=== PATIENT | male | born 1970 | race Caucasian/White ===

== ENCOUNTER 2018-06-09 06:38 | Inpatient (IN) | payer OTHER ==
[2018-06-01 13:59] VITALS: BMI 32.4
[2018-06-09] MEDS ORDERED: TRANEXAMIC ACID 1000 MG/10 ML VIAL IVPUSH ONE (07:52)
[2018-06-09] MEDS ORDERED: CELECOXIB 200 MG CAPSULE PO ONE (07:52)
[2018-06-09] MEDS ORDERED: CEFAZOLIN 2 GM in DEXTROSE 5%-WATER - 50 ML IVPB ONE (07:52)
[2018-06-09] MEDS ORDERED: GABAPENTIN 300 MG CAPSULE (FP) PO ONE (07:52)
[2018-06-09] MEDS ORDERED: oxyCODONE HCL 10 MG SUSTAINED ACTING TABLET PO ONE (07:52)
--- NOTE | 2018-06-09 07:57 | HP ---
Satellite [facility] - Chief Complaint Chief Complaint: right knee pain - Past Medical History Allergies/Adverse Reactions: Allergies Allergy/AdvReac Type Severity Reaction Status Date / Time No Known Allergies Allergy Verified 06/01/18 13:47 - Current Medications Current Medications: Home Medications Medication Instructions Recorded Losartan/Hydrochlorothiazide 1 each PO DAILY 06/01/18 [Losartan-Hctz 50-12.5 mg Tab] Satellite Physical Exam - Physical Examination General Appearance: Well Nourished, Well Developed, Alert & Oriented x3 ENT: Clear Lung: Normal air movement Heart: Regular rate & rhythm Extremities: Other (right knee- + swelling, + ttp, decr rom, nvi xrays show grade 4 tricompartmental djd) Neurological: Intact, Alert, Oriented Satellite Impression/Plan - Impression/Plan Impression: right knee djd Operative Procedure: right martha tkr Date to be Performed: 06/09/18
[2018-06-09] MEDS ORDERED: ceFAZolin SODIUM 1 GM VIAL ONE ×2 (08:03→10:07)
[2018-06-09] MEDS ORDERED: VANCOMYCIN 1,000 MG VIAL (RESTRICTED TO ID ONLY) ONE ×2 (08:03→09:56)
[2018-06-09] MEDS ORDERED: MIDAZOLAM HCL 2 MG/2 ML SINGLE DOSE VIAL ONE (08:57)
[2018-06-09] MEDS ORDERED: BUPIVACAINE HCL/PF (5 MG/ML) 30 ML VIAL IJ ONE (08:57)
[2018-06-09] MEDS ORDERED: BUPIVACAINE LIPOSOME/PF (EXPAREL) 266 MG/20 ML VIAL ONE (08:57)
[2018-06-09] MEDS ORDERED: SODIUM CHLORIDE 0.9% P/F 10 ML VIAL IJ ONE (08:57)
[2018-06-09] MEDS ORDERED: MAGNESIUM HYDROX 2400MG/30ML ORAL SUSPENSION 30 ML CUP PO PRN (09:56)
[2018-06-09] MEDS ORDERED: MAG HYDROX/AL HYDROX/SIMETH 30 ML UNIT-DOSE CUP PO PRN (09:56)
[2018-06-09] MEDS ORDERED: LACTATED RINGERS SOLUTION 1,000 ML IV SCH ×2 (10:00→12:30)
[2018-06-09] MEDS ORDERED: TRANEXAMIC ACID 1000 MG/10 ML VIAL ONE ×2 (10:07→11:54)
[2018-06-09] MEDS ORDERED: ONDANSETRON 4 MG/2 ML VIAL ONE (10:08)
[2018-06-09] MEDS ORDERED: PROPOFOL 20 ML ONE ×2 (10:10→11:20)
--- NOTE | 2018-06-09 12:08 | OP ---
Operative Note - Note: Operative Date: 06/09/18 (jessa) Pre-Operative Diagnosis: right knee djd Operation: right martha tkr Post-Operative Diagnosis: Same as Pre-op Surgeon: Rk Osei Bell Maker: Fabian Mendenhall Anesthesiologist/ORACLE BRM DEVELOPER: Earl Cho Anesthesia: Spinal, Local Specimens Removed: bone fragments Estimated Blood Loss (mls): 150 Operative Report Dictated: Yes
[2018-06-09] MEDS ORDERED: PROMETHAZINE HCL 25 MG/1 ML VIAL IVPB PRN (12:22)
[2018-06-09] MEDS ORDERED: ONDANSETRON 4 MG/2 ML VIAL IVPUSH PRN (12:22)
[2018-06-09] MEDS: ACETAMINOPHEN 1000 MG/100 ML VIAL (NON FORMULARY) IVPB ONE ×2 (12:55→13:19)
[2018-06-09] MEDS: ONDANSETRON 4 MG/2 ML VIAL IVPUSH PRN (13:10)
[2018-06-09] MEDS: SENNOSIDES/DOCUSATE COMBO (SENNA PLUS) TABLET (UD) PO SCH ×2 (13:18→21:22)
[2018-06-09] MEDS: LOSARTAN 50MG/HCTZ 12.5MG 1 TAB (FP) PO SCH (13:18)
[2018-06-09] MEDS: PANTOPRAZOLE 40 MG TABLET (FP) PO SCH (13:19)
[2018-06-09] MEDS: MULTIVITAMINS (DAILY MVI) TABLET (FP) PO SCH (13:19)
[2018-06-09] MEDS ORDERED: oxyCODONE HCL 5 MG TABLET PO PRN (13:49)
[2018-06-09] MEDS: ACETAMINOPHEN 325 MG TABLET (FP) PO SCH ×2 (16:39→20:34)
[2018-06-09] MEDS: CEFAZOLIN 2 GM/D5W 2 GM/50 ML ML IVPB SCH (18:44)
--- NOTE | 2018-06-09 20:53 | SPEC ---
DATE OF OPERATION: 06/09/2018 PREOPERATIVE DIAGNOSIS: Degenerative joint disease, right knee. POSTOPERATIVE DIAGNOSIS: Degenerative joint disease, right knee. PROCEDURE: Right total knee replacement with robotic-assisted navigation (Makoplasty). SURGICAL ATTENDING: Rk Osei M.D. CORN GROWER: Everardo Woods ANESTHESIA: Regional and spinal. CLOSURE: A cemented Triathlon knee system with a 6 femur, 7 tibia, 11 polyethylene, 38 patella, number 1 Vicryl fascia, 0 and 2-0 subcutaneous, 3-0 Monocryl subcuticular, with skin glue for skin, 4-0 undyed Vicryl for pin sites. ESTIMATED BLOOD LOSS: Less than 100 mL. COMPLICATIONS: None. CONDITION: To recovery room in stable condition. DESCRIPTION OF OPERATIVE PROCEDURE: Patient was taken to the operating room on June 09, 2018. Regional and general anesthesia was administered by the anesthesiologist. IV Kefzol and TXA were administered by the anesthesiologist. Well-padded pneumatic tourniquet was placed on the proximal thigh. The right lower extremity was prepped and draped in the usual sterile fashion. The leg was exsanguinated with an Esmarch bandage, and tourniquet was inflated to 275 mmHg. A 12 to 15-cm longitudinal midline incision was incised while centered over the patella. The dissection was carried down to the level of the extensor mechanism with sufficient flaps made to adequately perform the procedure. A medial parapatellar arthrotomy was then performed. We made a cuff of tissue on the patella for later closure. The patella was inverted, the knee was flexed up. The fat pad was excised. The subperiosteal dissection was on the anteromedial proximal tibia around towards the direction of the MCL. The ACL and the PCL were transected and debrided. The meniscal remnants of the medial and lateral meniscus were debrided and removed. This allowed the knee to be able to "be brought forward." The checkpoints were malleted into the tibia and into the femur. Two threaded pins were drilled anteroposteriorly proximal to the knee through the previous incision, through the anterior cortex, then just engaging the posterior cortex. To these pins was assembled the femoral navigation array. One handbreadth below the tibial tubercle, 2 stab incisions were used to drill 2 threaded pins in parallel fashion into the tibia, again through the anterior cortex and just engaging the posterior cortex. To these pins was fastened the tibial arrays. The knee was then registered with the navigation device with center of rotation of the hip, medial and lateral malleoli, both checkpoints, and multiple points on both the femur and the tibia to ensure excellent registration. The navigation device was directed off the "top of the bubbles" on both the femur and the tibia. The navigation passed within less than 0.5 mm to plan. The knee was then thoroughly inspected to remove all osteophytes both medially, laterally, and on the femur and the tibia, and whatever osteophytes were available for dissection. The knee was then taken to extension and to flexion, and stressed in both varus and valgus to assess flexion gaps. The virtual position of the components on the navigation device were then manipulated to optimize the position and to ensure equal gaps in both flexion and extension, and both medially and laterally. The robot was then brought into the field and was registered. The cuts were then made both on the femur and on the tibia as to plan. All osteophytes posteriorly were then removed as well. The gaps were then measured again in flexion and extension to be equal in both flexion and extension and medial and laterally. The femoral notch was then made, as we were doing a posterior stabilizing component, with the appropriate sized box. Trial reduction of the femur achieved excellent [id number] fit. A tibial baseplate of appropriate polyethylene thickness was "floated in the knee." It was ensured to be in the excellent position by navigation devices and was pinned in place. The knee was taken through a range of motion, and found to have excellent stability throughout flexion and extension. The patella was calibrated for thickness and osteotomized down to the appropriate level. The appropriate lollipop was used to drill the lug holes in the patella and the trial button was applied. The knee was taken through a range of motion and found to have excellent tracking of the patella, and patella from full extension to full flexion. Trial components were removed, the keel was punched and drilled, and a sclerotic bone on the tibia was drilled to help with cement interdigitation. The knee was thoroughly irrigated with the pulse antibiotic automobile seat cover installer. The real components were then cemented in using monitored arrangement cement techniques with antibiotic cement, and pressurization and extension. After the cement was hardened, the knee was thoroughly inspected to remove any extra cement. The real polyethylene component was then clipped into place. Range of motion, stability, and tracking were as described earlier. The checkpoints and the pins were removed. The knee was thoroughly irrigated with antibiotic irrigation. Vancomycin powder was placed into the knee for antibiotic prophylaxis. The medial parapatellar arthrotomy was then closed using number 1 Vicryl interrupted suture. After closure of the deep layer, the knee was taken through a range of motion, and found to have excellent stability of the patella with no dislocation and no undue tension on the repair. The subcutaneous was pulse antibiotic irrigated, and was then closed with 2-0 Vicryl, 3-0 Monocryl subcuticular with the skin glue for the skin. The distal tibial pin site was irrigated thoroughly as well and then closed with 4-0 undyed Vicryl. A sterile Aquacel dressing was applied, followed by a Chi dressing. Tourniquet was deflated. Total tourniquet time was approximately 75 minutes. No complications. Patient was awakened from anesthesia and transferred to recovery room in stable condition. Postoperative x-rays revealed excellent position of the components. Isabela [id number]
[2018-06-09] MEDS: GABAPENTIN 300 MG CAPSULE (FP) PO SCH (21:21)
[2018-06-09] MEDS: oxyCODONE HCL 5 MG TABLET PO PRN (21:22)
[2018-06-09] MEDS: oxyCODONE HCL 10 MG SUSTAINED ACTING TABLET PO SCH (21:22)
[2018-06-10] MEDS: CEFAZOLIN 2 GM/D5W 2 GM/50 ML ML IVPB SCH (01:50)
[2018-06-10] MEDS: ACETAMINOPHEN 325 MG TABLET (FP) PO SCH ×4 (02:33→21:54)
[2018-06-10] MEDS: oxyCODONE HCL 5 MG TABLET PO PRN ×4 (05:34→23:35)
[2018-06-10 07:50] LABS: HEMATOCRIT 42.9 % (35.4-49)
[2018-06-10 08:06] LABS: HEMOGLOBIN 14.3 GM/dl (11.7-16.9); MCH 28.8 pg (25.7-33.7); MCHC 33.2 g/dl (32.0-35.9); MEAN CELL VOLUME 86.7 fl (80-96); MEAN PLT VOLUME 7.8 fl (7.5-11.1); PLATELET COUNT 287 K/MM3 (134-434); RBC 4.95 M/mm3 (4.00-5.60); RDW 12.6 % (11.9-15.9); WHITE BLOOD COUNT 10.7 K/mm3 (4.0-10.8)
--- NOTE | 2018-06-10 08:22 | PN ---
Progress Note (short form) - Note Progress Note: Ortho Pt seen and examined s/p right martha tkr pod #1 Selected Entries 06/10/18 05:00 Temperature 98.1 F Pulse Rate 102 H Respiratory 18 Rate Blood Pressure 130/81 Laboratory Tests 06/10/18 07:15 WBC 10.7 Hgb 14.3 Hct 42.9 Plt Count 287 dressing c/d/i, calf soft, nt rom 0-50, nvi a/p PT dvt ppx pain control d/c home tomorrow if stable
[2018-06-10] MEDS: ASPIRIN 325 MG TABLET PO SCH (08:34)
[2018-06-10] MEDS: MULTIVITAMINS (DAILY MVI) TABLET (FP) PO SCH (09:14)
[2018-06-10] MEDS: PANTOPRAZOLE 40 MG TABLET (FP) PO SCH (09:14)
[2018-06-10] MEDS: GABAPENTIN 300 MG CAPSULE (FP) PO SCH ×2 (09:14→21:53)
[2018-06-10] MEDS: LOSARTAN 50MG/HCTZ 12.5MG 1 TAB (FP) PO SCH (09:14)
[2018-06-10] MEDS: SENNOSIDES/DOCUSATE COMBO (SENNA PLUS) TABLET (UD) PO SCH ×2 (09:15→21:54)
[2018-06-10] MEDS: oxyCODONE HCL 10 MG SUSTAINED ACTING TABLET PO SCH ×2 (09:15→21:54)
[2018-06-10] MEDS: ONDANSETRON 4 MG/2 ML VIAL IVPUSH PRN (09:19)
[2018-06-11] MEDS: ACETAMINOPHEN 325 MG TABLET (FP) PO SCH ×2 (04:00→08:51)
[2018-06-11] MEDS: oxyCODONE HCL 5 MG TABLET PO PRN ×2 (06:26→13:00)
--- NOTE | 2018-06-11 08:12 | PN ---
Progress Note (short form) - Note Progress Note: Ortho Pt seen and examined s/p right martha tkr pod #2 Selected Entries 06/11/18 06:00 Temperature 98.5 F Pulse Rate 111 H Respiratory 18 Rate Blood Pressure 145/82 Laboratory Tests 06/11/18 07:00 WBC Pending Hgb Pending Hct Pending Plt Count Pending dressing c/d/i, calf soft, nt rom 0-50, nvi a/p PT dvt ppx pain control d/c home today f/u in 1 week
--- NOTE | 2018-06-11 08:13 | DS ---
Physical Examination Vital Signs: Vital Signs Temperature 98.5 F 06/11/18 06:00 Pulse Rate 111 H 06/11/18 06:00 Respiratory Rate 18 06/11/18 06:00 Blood Pressure 145/82 06/11/18 06:00 O2 Sat by Pulse Oximetry (%) 94 L 06/11/18 06:00 Discharge Summary Reason For Visit: OSTEOARTHRITIS Procedures: Principal: right tkr Hospital Course: admitted for elective right martha tkr, uneventful post-op, stable for d/c Condition: Good - Instructions Diet, Activity, Other Instructions: Post-op Instructions-Total Knee Replacement Call the office for a follow-up appointment in 1 week - [phone] Aspirin 325mg daily for 6 weeks. Pain medication was sent into your pharmacy. Apply Graduated Compression Stockings (TEDs) to both lower extremities- remove daily for hygiene ONLY Apply Sequential Compression Device (SCDs) to both Lower extremities remove for PT and hygiene ONLY Apply cold packs to affected area for 15 minutes every 2 hours. Physical Therapist will come to your home for the first 5 days. You will be set up with outpatient PT at your first post-operative visit. Patient may ambulate as tolerated-encourage self care (at least every 2-3 hours while awake) with walker or cane Maintain Aquacel (waterproof) dressing to operative wound (will be removed by surgeon at first office visit) Shower with Aquacel dressing in place-if Aquacel integrity compromised, remove and apply dry sterile dressing and notify Orthopedist. DO NOT SHOWER unless Orthopedists approves without Aquacel dressing CONTACT THE OFFICE FOR ANY CHANGE IN YOUR CONDITION (for example-fever greater than 102 degrees, excessive bleeding from operative site, purulent drainage, severe swelling or pain) GO TO THE EMERGENCY ROOM IF THERE IS A MEDICAL EMERGENCY Knee Precautions: * Keep a rolled towel under affected heel while in bed or chair (to keep knee in extension) * Keep affected leg elevated except during mealtimes * DO NOT PLACE PILLOW UNDER AFFECTED KNEE * If you have any questions, please do not hesitate to call the office - [phone]. Referrals: Rk Osei MD [Staff Physician] - Disposition: VNS/HOME HEALTH CARE - Home Medications Comprehensive Discharge Medication List: Ambulatory Orders Losartan/Hydrochlorothiazide [Losartan-Hctz 50-12.5 mg Tab] 1 each PO DAILY 03/09 Aspirin [ASA -] 325 mg PO DAILY@0800 tablet 06/09/18 Oxycodone HCl/Acetaminophen [Percocet 5-325 mg Tablet -] 1 - 2 tab PO Q6H #60 tab MDD 8 06/10/18
[2018-06-11 08:37] LABS: HEMATOCRIT 41.1 % (35.4-49); HEMOGLOBIN 13.7 GM/dl (11.7-16.9); MCH 29.2 pg (25.7-33.7); MCHC 33.5 g/dl (32.0-35.9); MEAN CELL VOLUME 87.3 fl (80-96); MEAN PLT VOLUME 8.1 fl (7.5-11.1); PLATELET COUNT 246 K/MM3 (134-434); RBC 4.71 M/mm3 (4.00-5.60); RDW 12.8 % (11.9-15.9); WHITE BLOOD COUNT 10.9 K/mm3 (4.0-10.8)
[2018-06-11] MEDS: ASPIRIN 325 MG TABLET PO SCH (08:51)
[2018-06-11 09:14] VITALS: BP 112/61; PULSE 113; TEMP 99.1
[2018-06-11] MEDS: oxyCODONE HCL 10 MG SUSTAINED ACTING TABLET PO SCH (09:42)
[2018-06-11] MEDS: MULTIVITAMINS (DAILY MVI) TABLET (FP) PO SCH (09:42)
[2018-06-11] MEDS: LOSARTAN 50MG/HCTZ 12.5MG 1 TAB (FP) PO SCH (09:42)
[2018-06-11] MEDS: SENNOSIDES/DOCUSATE COMBO (SENNA PLUS) TABLET (UD) PO SCH (09:42)
[2018-06-11] MEDS: GABAPENTIN 300 MG CAPSULE (FP) PO SCH (09:42)
[2018-06-11] MEDS: PANTOPRAZOLE 40 MG TABLET (FP) PO SCH (09:42)
--- NOTE | 2018-06-17 14:09 | PATH ---
Surgical Pathology Report Patient Name: ANAHI KASPER Med. Rec. #: [id number] /Age/Gender: 1970 (Age: 48) / M Account: [id number] Location: [facility] MED-SURG Taken: 06/09/2018 Received: 06/09/2018 Reported: 06/17/2018 Physicians: Rk Osei M.D. Specimen(s) Received RIGHT KNEE BONE Clinical History Osteoarthritis Final Diagnosis BONE, RIGHT KNEE, TOTAL KNEE REPLACEMENT: DEGENERATIVE JOINT DISEASE. Electronically Signed Theodora Rutledge M.D. Gross Description Received in formalin labeled "right knee bone," is an 11.5 x 10.0 x 2.0 cm aggregate of multiple portions of bone and soft tissue, consistent with knee bones. The articular surfaces are cooper-brown and diffusely granular. No areas of eburnation are identified. The underlying trabecular bone is yellow and hard. Director Of Reservations sections are submitted in one cassette, following decalcification. 06/10/2018 [facility]06/10/2018
== END 2018-06-11 13:10 | disposition home health service (06) | DRG 470 ==
LOC: FM/S 06:38
PROVIDERS: ADMIT Orthopaedic Surgery; ATTEND Orthopaedic Surgery
PROC: 8E0Y0CZ Robotic Assisted Procedure of Lower Extremity, Open Approach (ICD-10-PCS; 2018-06-09)
PROC: 0SRC0JZ Replacement of Right Knee Joint with Synthetic Substitute, Open Approach (ICD-10-PCS; principal; 2018-06-09 10:08)
DX: M17.11 Unilateral primary osteoarthritis, right knee (principal)
CPT/HCPCS: 36415; 73560-TC-RT-FY; 85027; 88304-TC; 88311-TC; 94760; 97116-GP; 97162-GP; J0131

== ENCOUNTER 2018-07-17 08:44 | Day surgery (SDC) | payer OTHER ==
[2018-07-16 09:10] VITALS: BMI 32.1
--- NOTE | 2018-07-17 08:11 | HP ---
Satellite [facility] - Chief Complaint Chief Complaint: STIFFNESS R KNEE History Source: Patient - Past Medical History Allergies/Adverse Reactions: Allergies Allergy/AdvReac Type Severity Reaction Status Date / Time No Known Allergies Allergy Verified 06/01/18 13:47 - Current Medications Current Medications: Home Medications Medication Instructions Recorded Losartan/Hydrochlorothiazide 1 each PO DAILY 06/01/18 [Losartan-Hctz 50-12.5 mg Tab] Aspirin [ASA -] 325 mg PO DAILY@0800 tablet 06/09/18 Acetaminophen [Extra Strength 500 mg PO PRN PRN 07/16/18 Non-Aspirin] Satellite Physical Exam - Physical Examination Extremities: Other (DECREASED ROM R KNEE) Satellite Impression/Plan - Impression/Plan Impression: ARTHROFRIBROSIS R KNEE S/P R TKR Operative Procedure: KENIA R KNEE Date to be Performed: 07/17/18
[2018-07-17] MEDS ORDERED: DEXAMETHASONE SOD PHOSPHATE 4 MG/1 ML VIAL ONE (09:32)
[2018-07-17] MEDS ORDERED: LIDOCAINE HCL/PF 2% SDV 5ML VIAL ONE (09:32)
[2018-07-17] MEDS ORDERED: KETOROLAC TROMETHAMINE 30 MG/1 ML VIAL ONE (09:32)
[2018-07-17] MEDS ORDERED: MIDAZOLAM HCL 2 MG/2 ML SINGLE DOSE VIAL ONE (09:35)
--- NOTE | 2018-07-17 10:11 | OP ---
Operative Note - Note: Operative Date: 07/17/18 ([facility]) Pre-Operative Diagnosis: right knee arthrofibrosis s/p TKR Operation: right knee manipulation under anesthesia Post-Operative Diagnosis: Same as Pre-op Surgeon: Rk Osei Anesthesiologist/GLOBAL CHIEF EXPERIENCE OFFICER: Matt Gil Anesthesia: MAC Operative Report Dictated: Yes
[2018-07-17] MEDS ORDERED: PROPOFOL 20 ML ONE (10:14)
--- NOTE | 2018-07-17 10:37 | OP ---
DATE OF OPERATION: 07/17/2018 PREOPERATIVE DIAGNOSIS: Arthrofibrosis status post right total knee replacement. POSTOPERATIVE DIAGNOSIS: Arthrofibrosis status post right total knee replacement. PROCEDURE: Manipulation under anesthesia of right knee. SURGICAL ATTENDING: Rk Osei MD ANESTHESIA: IV sedation. COMPLICATIONS: None. CONDITION: To recovery room in stable condition. DESCRIPTION OF OPERATIVE PROCEDURE: Patient was taken to the operating room on July 17, 2018. IV sedation was administered by the anesthesiologist. Prior to the manipulation, patient had an arc of range of motion from 5 degrees to 85 degrees. After sedation was given, a gentle manipulation was performed. Flexion was easily obtained to 125 degrees of flexion, and then, patellar mobilization medially and laterally was performed, as well, and then, extension also was able to be fully regained. Patient was awakened from anesthesia 1 minute after being anesthetized and transferred to the recovery room in stable condition. No complications. RK OSEI M.D. [id number]
[2018-07-17] MEDS ORDERED: ONDANSETRON 4 MG/2 ML VIAL IVPUSH PRN (11:13)
[2018-07-17] MEDS ORDERED: oxyCODONE HCL 5 MG TABLET PO PRN (11:13)
[2018-07-17 11:15] VITALS: BP 138/91; PULSE 86; TEMP 97.6
[2018-07-17] MEDS ORDERED: LACTATED RINGERS SOLUTION 1,000 ML IV SCH (11:15)
== END 2018-07-17 11:31 | disposition home or self-care (01) ==
LOC: JASU-SURG 08:44
PROVIDERS: ATTEND Orthopaedic Surgery
PROC: 0SNCXZZ Release Right Knee Joint, External Approach (ICD-10-PCS; principal; 2018-07-17 11:30)
DX: M24.661 Ankylosis, right knee (principal); Z96.651 Presence of right artificial knee joint

== ENCOUNTER 2022-06-18 05:53 | Day surgery (SDC) | payer OTHER ==
[2022-06-18] MEDS ORDERED: CELECOXIB 200 MG CAPSULE PO ONE (06:31)
[2022-06-18] MEDS ORDERED: CEFAZOLIN 2 GM in DEXTROSE 5%-WATER - 50 ML IVPB ONE (06:31)
[2022-06-18 06:59] VITALS: BMI 32.7
[2022-06-18] MEDS ORDERED: PROPOFOL 60 ML ONE (07:18)
[2022-06-18] MEDS ORDERED: MIDAZOLAM HCL 2 MG/2 ML SINGLE DOSE VIAL ONE (07:18)
[2022-06-18] MEDS ORDERED: ceFAZolin SODIUM 1 GM VIAL ONE ×4 (07:19→08:06)
[2022-06-18] MEDS ORDERED: VANCOMYCIN 1,000 MG VIAL (RESTRICTED TO ID ONLY) ONE (07:19)
[2022-06-18] MEDS ORDERED: BUPIVACAINE HCL/PF 0.5% (5 MG/ML) 30 ML VIAL IJ ONE (07:23)
[2022-06-18] MEDS ORDERED: DEXAMETHASONE SOD PHOSPHATE/PF 10 MG/ML SDV ONE (07:23)
[2022-06-18] MEDS ORDERED: ACETAMINOPHEN INJECTION 100 ML IVPB ONE (07:24)
[2022-06-18] MEDS ORDERED: ONDANSETRON 4 MG/2 ML VIAL IVPUSH PRN (08:03)
[2022-06-18] MEDS ORDERED: TRANEXAMIC ACID 1000 MG/10 ML VIAL ONE (08:06)
[2022-06-18] MEDS ORDERED: DEXAMETHASONE SOD PHOSPHATE 4 MG/1 ML VIAL ONE (08:06)
[2022-06-18] MEDS ORDERED: LACTATED RINGERS SOLUTION 1,000 ML IV SCH (08:15)
[2022-06-18] MEDS ORDERED: VASOPRESSIN 20 UNITS/ML VIAL IV ONE ×2 (08:26)
[2022-06-18] MEDS ORDERED: TRANEXAMIC ACID 1000 MG/10 ML VIAL IVPUSH ONE (09:00)
[2022-06-18] MEDS ORDERED: VANCOMYCIN 1,000 MG VIAL (RESTRICTED TO ID ONLY) IVPB ONE (09:44)
[2022-06-18] MEDS ORDERED: PATIENT'S OWN MEDICATION (NON-FORMULARY) (Olmesartan/Hydrochlorothiazide [Benicar Hct 40-2 PO SCH (10:00)
[2022-06-18] MEDS ORDERED: PROPOFOL 20 ML ONE (10:01)
[2022-06-18] MEDS ORDERED: FENTANYL CITRATE/PF 50 MCG/ML VIAL ONE ×3 (10:28→10:47)
[2022-06-18] MEDS ORDERED: ACETAMINOPHEN 325 MG TABLET (FP) PO PRN (10:31)
[2022-06-18] MEDS ORDERED: ONDANSETRON 4 MG/2 ML VIAL ONE (11:07)
[2022-06-18] MEDS: MULTIVITAMINS (DAILY MVI) TABLET (FP) PO SCH (11:33)
[2022-06-18 11:38] VITALS: RESP 18
[2022-06-18] MEDS: PANTOPRAZOLE 40 MG TABLET PO SCH (11:38)
[2022-06-18] MEDS: SENNOSIDES/DOCUSATE COMBO (SENNA PLUS) TABLET (UD) PO SCH ×2 (11:39→21:19)
[2022-06-18] MEDS: oxyCODONE HCL 5 MG TABLET PO PRN (15:38)
[2022-06-18] MEDS: CEFAZOLIN SODIUM 2 GM in DEXTROSE 5%-WATER 100 ML IVPB SCH ×2 (15:48→23:42)
[2022-06-19] MEDS: oxyCODONE HCL 5 MG TABLET PO PRN ×3 (06:07→13:44)
[2022-06-19 06:44] VITALS: PULSE 80
[2022-06-19] MEDS ORDERED: ASPIRIN 325 MG TABLET PO SCH (08:00)
[2022-06-19 08:46] LABS: HEMOGLOBIN 13.4 G/dL (11.7-16.9); MCH 30.3 pg (25.7-33.7); MCHC 35.2 g/dl (32.0-35.9); MEAN CELL VOLUME 85.9 fl (80-96); PLATELET COUNT 272.8 10^3/uL (134-434); RBC 4.42 10^6/uL (4.00-5.60); RDW 13.8 % (11.9-15.9); WHITE BLOOD COUNT 12.4 10^3/uL (4.0-10.8)
[2022-06-19] MEDS: SENNOSIDES/DOCUSATE COMBO (SENNA PLUS) TABLET (UD) PO SCH (09:30)
[2022-06-19] MEDS: MULTIVITAMINS (DAILY MVI) TABLET (FP) PO SCH (09:31)
[2022-06-19] MEDS: PANTOPRAZOLE 40 MG TABLET PO SCH (09:32)
[2022-06-19 09:35] VITALS: BP 120/69; TEMP 98.6
[2022-06-19] MEDS ORDERED: LOSARTAN 50MG/HCTZ 12.5MG 1 TAB PO SCH (10:00)
[2022-06-19] MEDS ORDERED: amLODIPine BESYLATE 5 MG TABLET (FP) PO SCH (10:00)
== END 2022-06-19 16:39 | disposition home health service (06) ==
LOC: FASUSAT 05:53 → FM/S 11:29 → FASUSAT 06-19 16:39
PROVIDERS: ATTEND Orthopaedic Surgery
PROC: 8E0Y0CZ Robotic Assisted Procedure of Lower Extremity, Open Approach (ICD-10-PCS; 2022-06-18)
PROC: 0SRD0J9 Replacement of Left Knee Joint with Synthetic Substitute, Cemented, Open Approach (ICD-10-PCS; principal; 2022-06-18 08:22)
DX: M17.12 Unilateral primary osteoarthritis, left knee (principal); I10 Essential (primary) hypertension
CPT/HCPCS: 20985; 27447; C1776; S2900; 36415; 73560-TC-LT-FY; 85027; 94760; 97010-GP; 97116-GP; 97162-GP; C1713; C1889

== ENCOUNTER 2022-07-23 06:09 | Day surgery (SDC) | payer OTHER ==
[2022-07-22 13:53] VITALS: BMI 31.2
[2022-07-23] MEDS ORDERED: MIDAZOLAM HCL 2 MG/2 ML SINGLE DOSE VIAL ONE (06:53)
[2022-07-23] MEDS ORDERED: PROPOFOL 40 ML ONE (06:55)
[2022-07-23] MEDS ORDERED: LIDOCAINE HCL/PF 2% SDV 5ML VIAL ONE (06:58)
[2022-07-23 08:28] VITALS: TEMP 97.8
[2022-07-23] MEDS ORDERED: ACETAMINOPHEN INJECTION 100 ML IVPB ONE (08:31)
[2022-07-23 08:48] VITALS: BP 130/82
[2022-07-23 09:25] VITALS: PULSE 88; RESP 19
== END 2022-07-23 09:25 | disposition home or self-care (01) ==
LOC: FASU 06:09
PROVIDERS: ATTEND Orthopaedic Surgery
PROC: 7W06X9Z Osteopathic Treatment of Lower Extremities using Other Method (ICD-10-PCS; principal; 2022-07-23 07:38)
DX: M24.662 Ankylosis, left knee (principal); Z96.652 Presence of left artificial knee joint
CPT/HCPCS: 94760